=== PATIENT | male | born 1960 ===

== ENCOUNTER 2019-05-18 08:37 | Emergency (ER) | payer SELFPAY ==
[~2019-05-18] VITALS: Ht 182.9 cm; Wt 150.0 kg
--- NOTE | 2019-05-18 09:05 | NUR ---
BIB BY MARIA E AFTER GETTING ESCORTED FROM [facility] FOR LOITERING. ADMITS TO DRINKING OVERNIGHT (VODKA). NO COMPLAINTS. HOWEVER, EMS REPORTS HX OF AFIB/CHF SPEECH TANGETIAL (ETOH VS. POTENTIAL PSYCH BEHAVIORS) DENIES SI/HI 95, 150/96
--- NOTE | 2019-05-18 09:10 | NUR ---
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
[2019-05-18 10:16] LABS: BASOPHILS # (AUTO) 0.07 x10^3/uL (0-0.1); BASOPHILS % (AUTO) 2 % (0-1); EOSINOPHILS # (AUTO) 0.02 x10^3/uL (0-0.4); EOSINOPHILS % (AUTO) 1 % (1-7); LYMPHOCYTES # (AUTO) 1.45 x10^3/uL (1-3.4); LYMPHOCYTES % (AUTO) 39 % (22-44); MD NO; MEAN CORPUSCULAR HEMOGLOBIN 27.3 pg (27.5-34.5); MEAN CORPUSCULAR HGB CONC 32.5 g/dL (33.2-36.2); MEAN CORPUSCULAR VOLUME 83.9 fL (81-97); MEAN PLATELET VOLUME 8.8 fL (7.4-10.4); MONOCYTES # (AUTO) 0.41 x10^3/uL (0.2-0.8); MONOCYTES % (AUTO) 11 % (2-9); NEUTROPHILS # (AUTO) 1.78 x10^3/uL (1.8-6.8); NEUTROPHILS % (AUTO) 48 % (42-75); PLATELET COUNT 100 x10^3/uL (130-400); RED BLOOD COUNT 4.72 x10^6/uL (4.38-5.82); RED CELL DISTRIBUTION WIDTH 20.4 % (9.4-14.8)
[2019-05-18 10:24] LABS: ALBUMIN 3.4 g/dL (3.4-5.0); ANION GAP 6 mmol/L (5-15); CHLORIDE 107 mmol/L (98-107); CREATININE 0.76 mg/dL (0.7-1.3)
[2019-05-18 10:27] LABS: TROPONIN I < 0.015 ng/mL (0.000-0.045)
[2019-05-18 10:38] VITALS: BP 141/77
--- NOTE | 2019-05-18 10:39 | NUR ---
WITH REASSESSMENT PATIENT DENIES ANY COMPLAINTS. 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
--- NOTE | 2019-05-18 11:57 | NUR ---
WITH REASSESSMENT PATIENT NOW QUITE DROWSY. ATTEMPTED TO ROUSE FOR ROAD TEST. PATIENT TOO LETHARGIC PLACED ON 2L NC TO ALLOW TO REST TH EN D/C SHORTLY
[2019-05-18] MEDS ORDERED: NEOSPORIN OINT. PKT 1 PACKET ONE (12:13)
--- NOTE | 2019-05-18 13:50 | NUR ---
With reassessment patient now alert/interactive. walked to restroom with no difficulty Tolerating po fluids/solids to d/c via taxi voucher shortly
== END 2019-05-18 15:12 | disposition home or self-care (01) ==
LOC: ED 15:06
DX: F10.220 Alcohol dependence with intoxication, uncomplicated (principal); I48.91 Unspecified atrial fibrillation; I50.9 Heart failure, unspecified; F17.200 Nicotine dependence, unspecified, uncomplicated
CPT/HCPCS: 36415; 71045; 80048; 82040; 83880; 84484; 85025; 93005; 99284